=== PATIENT | male | born 1965 | race Caucasian/White ===

== ENCOUNTER → 2021-11-27 | Outpatient (CLI) | payer OTHER ==
[~2021-11-27] MED LIST: NORCO 5-325 TA1 EACH PO; OMNICEF 300 MG300 MG PO
== END ==
LOC: KOH-I 14:52
DX: S42.202A Unspecified fracture of upper end of left humerus, initial encounter for closed fracture (principal); S43.022A Posterior subluxation of left humerus, initial encounter
CPT/HCPCS: 73200

== ENCOUNTER → 2021-12-06 | Outpatient (CLI) | payer OTHER ==
[~2021-12-06] MED LIST changes: +ACETAMINOPHEN500 M1 PO; +ADULT LOW DOSE81 MG PO; +LANTUS SOL100 UNIT/1 SQ; +METFORMIN HCL1000 MG PO; +OMEPRAZOLE40 MG PO; +[UNRECOGNIZED DRUG - REMARK] PO
[2021-12-06 10:30] LABS: HEMOGLOBIN 11.7 gm/dl (14.0-17.5); RED BLOOD COUNT 3.75 M/UL (4.20-5.50); WHITE BLOOD COUNT 7.2 K/UL (4.5-11.0)
[2021-12-06 11:17] LABS: BUN/CREATININE RATIO 41 (0-10)
== END ==
LOC: OPSV2 09:00 → EDSTATUS 09:00 → OPSV2 09:27
PROVIDERS: Orthopaedic Surgery
DX: Z01.818 Encounter for other preprocedural examination (principal); R94.31 Abnormal electrocardiogram [ECG] [EKG]; I25.2 Old myocardial infarction
CPT/HCPCS: 71046; 80048; 85027; 86850; 86900; 86901; 93005

== ENCOUNTER → 2021-12-07 | Day surgery (SDC) | payer OTHER | END | disposition home or self-care (01) | LOC: OR 06:27 | DX: S42.202A Unspecified fracture of upper end of left humerus, initial encounter for closed fracture (principal); W18.30XA Fall on same level, unspecified, initial encounter; Y92.012 Bathroom of single-family (private) house as the place of occurrence of the external cause; G89.18 Other acute postprocedural pain; E11.9 Type 2 diabetes mellitus without complications; Z79.4 Long term (current) use of insulin; Z79.82 Long term (current) use of aspirin | CPT/HCPCS: 73020; 82962; C1713; C1776; J0690; J1100; J1170; J1885; J2001; J2250; J2370; J2405; J2704; J2795; J3010 ==